=== PATIENT | female | born 1980 | race African-American/Black ===

== ENCOUNTER 2017-09-23 12:10 | Observation (INO) ==
[~2017-09-23 12:10] MED LIST: Lidocaine 1%/Epinephrine 1:100,000 Inj 30 ML Vial ONE; Microfibrillar Collagen Hemostat 1 GM Packet TOPICAL ONE
[2017-09-23] MEDS ORDERED: Metoprolol Tartrate 25 MG Tablet PO SCH (13:15)
[2017-09-23] MEDS ORDERED: Chlorhexidine Gluconate 2% 1 Pack (2 Cloths) TOPICAL SCH (13:15)
[2017-09-23] MEDS ORDERED: Ampicillin/Sulbactam 3 GM Vial ONE (13:33)
[2017-09-23] MEDS ORDERED: Sodium Chlor 0.9% Inj 500 ML IV.SIG SCH (14:00)
[2017-09-23] MEDS ORDERED: Famotidine PF Inj 20 MG/2 ML Vial ONE (14:30)
[2017-09-23] MEDS ORDERED: fentaNYL Citrate Inj 100 MCG/2 ML Ampul ONE ×2 (14:32→14:33)
[2017-09-23] MEDS ORDERED: Ampicillin/Sulbactam Inj 3 GM in Sodium Chloride 0.9% Inj 100 ML IV.SIG PRN (14:44)
[2017-09-23] MEDS: Acetaminophen-HYDROcodone 325/7.5 Liq 15 ML UDC PO PRN (19:37)
[2017-09-23] MEDS ORDERED: Ampicillin/Sulbactam Inj 3 GM in Sodium Chloride 0.9% Inj 100 ML IV.SIG SCH (22:00)
[2017-09-24] MEDS: Acetaminophen-HYDROcodone 325/7.5 Liq 15 ML UDC PO PRN (00:15)
[2017-09-24] MEDS ORDERED: Lidocaine PF 1% Inj 5 ML Syringe INFILTRATN ONE (12:00)
[2017-09-24] MEDS ORDERED: Phenylephrine/NS 1000 MCG/10ML Syringe IV.PUSH ONE (12:00)
[2017-09-24] MEDS ORDERED: Neostigmine Inj 5 MG/5 ML Syringe IV.PUSH ONE (12:00)
--- NOTE | 2017-10-08 16:34 | MP ---
cc: Walter Guerrier MD DATE OF OPERATION: 09/23/2017 SURGEON: Walter Guerrier MD PREOPERATIVE DIAGNOSES: 1. Nasal airway obstruction. 2. Nasal septal deviation. 3. Hypertrophy of inferior turbinates. 4. Chronic pansinusitis. 5. Chronic adenotonsillitis. 6. Adenotonsillar hypertrophy. 7. Obstructive sleep apnea. POSTOPERATIVE DIAGNOSES: 1. Nasal airway obstruction. 2. Nasal septal deviation. 3. Hypertrophy of inferior turbinates. 4. Chronic pansinusitis. 5. Chronic adenotonsillitis. 6. Adenotonsillar hypertrophy. 7. Obstructive sleep apnea. OPERATION PERFORMED: 1. Septoplasty. 2. Bilateral submucosal resection of inferior turbinates. 3. Bilateral endoscopic maxillary antrostomy with debridement of maxillary sinus tissue. 4. Bilateral endoscopic exploration of frontal sinus ducts with balloon dilation. 5. Bilateral endoscopic sphenoidotomy with removal of sphenoid sinus tissue. 6. Adenotonsillectomy. INDICATION FOR PROCEDURE: Documented in the history and physical. DETAILS OF PROCEDURE: The patient was taken to OR #2 and placed in the supine position. Following induction of general anesthesia and intubation, the nose was packed bilaterally with cotton pledgets saturated in 0.05% oxymetazoline. Septal mucosa and inferior turbinates were injected with a total of 12 mL of 1% Xylocaine with epinephrine 1:100,000. She was then prepped and draped for surgery. The packing was removed and a hemitransfixion incision was made in the left nasal vestibule and through this incision, the mucosa was elevated from the septum as far as the junction of the bony and cartilaginous septum. This was followed by removal of a 2 x 2 cm area of quadrangular cartilage, preserving 1.5 cm dorsal and caudal cartilaginous struts. Next, mucosa was elevated from the bony septum. This was then removed with Rom-Christianson forceps and a Moran septal forceps and was carried back as far as the rostrum of the sphenoid. The maxillary crest was removed using a 6 mm Mery chisel. The incision was then closed using a running suture of 4-0 chromic and the mucosal layers of septum were approximated to each other with a quilting stitch of 4-0 plain gut. The inferior turbinates were addressed next. They were fractured out medially and stab incisions were made along their inferior surfaces. Through these incisions, the submucosal soft tissue was reduced using a curette and preserving the conchal bone. The incisions were then cauterized using the suction Bovie at 35 heath and the remnants of the inferior turbinates were then relateralized to the lateral nasal wall. The remainder of the operation was done using endoscopic visualization beginning with enlargement of the maxillary ostium on the left side using 3 mm olive tip suction followed by the Stammberger forceps and the power microdebrider. This gave easy access to the cavity, which was debrided of inflamed mucosa and mucopurulent material. Next, the sphenoid sinus was opened and debrided using a #10 suction to identify the ostium which was then enlarged with a sphenoid rongeur and with the power debrider, the cavity was then debrided with the 0-degree scope and Ireneley forceps. The right side was operated in the same fashion with opening of the maxillary and sphenoid sinus, enlargement of the ostia and then debridement of the contents of the cavities. Next, the Acclarent balloon technique was used on the frontal sinus ducts, the left side first. The guidewire was advanced into the duct and the balloon over the wire. It was then inflated to a pressure of 12 atmospheres. At the superior limit to the midpoint of the duct and inferiorly at its junction with the ethmoid cells. It was verified patent all the way into the frontal sinus. The right side was then dilated in the same fashion. When this was completed, the nose was packed bilaterally with Merocel tampons coated in bacitracin ointment. The table was then turned 90 degrees and a shoulder roll and a McIvor mouth gag were put in place. The tonsils were removed using the ArthroCare Coblator technique. Numerous sites of venous bleeding were cauterized on both sides using the bipolar cautery. Both sides were also packed with Avitene microfibrillars, which were held in place with a dry cotton pack for 5 minutes. Next, the adenoids were removed using the suction Bovie at 45 heath. The stomach was aspirated of several mL of cloudy gastric contents using a #18 Jack sump NG tube and when this was completed, the mouth gag was removed and the procedure was terminated. The patient was reversed from anesthesia and taken to recovery in good condition. There were no complications. Blood loss was 200 mL. MD DIAZ Forrest/BASIL , 04:02 PM , 04:13 PM
== END 2017-09-24 13:15 | disposition home or self-care (01) ==
LOC: PHOR 12:10 → PH3 12:10
PROVIDERS: ADMIT Otolaryngology; ATTEND Otolaryngology